=== PATIENT | female | born 2000 | race African-American/Black ===

== ENCOUNTER 2023-09-04 22:47 | Emergency (ER) | payer OTHER, SELFPAY ==
[2023-09-04 22:51] VITALS: BP 140/89; PULSE 86; RESP 18; TEMP 36.3; O2SAT 100; BMI 41.1
--- NOTE | 2023-09-04 23:11 | EKG12_ITS ---
Test Reason : Blood Pressure : / mmHG Vent. Rate : 077 BPM Atrial Rate : 077 BPM P-R Int : 138 ms QRS Dur : 072 ms QT Int : 370 ms P-R-T Axes : 054 081 013 degrees QTc Int : 418 ms Normal sinus rhythm with sinus arrhythmia Normal ECG Confirmed by MEDARDO MUNROE, SHARON ([id number]), primer expeditor and drier DAQUAN HDZ ([id number]) on 09/05/2023 9:40:18 AM Referred By: Confirmed By:SHARON BATRES MD
--- NOTE | 2023-09-04 23:12 | EDS_ITS ---
HPI History of Present Illness Chief Complaint: Poisoning Informant: patient Narrative Narrative: About 2 or 3 hours ago, patient states she was at a dance show/recital with some other people, she saw that 1 person was eating some gummy worms so she asked him if she could have some. He brought her a couple gummy worms, she states she did not see the bag that they were in, just simply brought her a couple to eat which she did and shortly thereafter, 10 or 15 minutes afterwards, she started feeling hot, she felt her heart racing, and that made her feel a little dyspneic but she did not have any other symptoms or pains or near syncope/syncope. She states th is lasted probably less than 20 minutes before it went away and now she feels back to normal and wants to know what happened. She has used no substances that she knows of including marijuana. PFSH PFSH Medical History no medical history no medical history Allergy/AdvReac Type Severity Reaction Status Date / Time No Known Allergies Allergy Verified 09/04/23 22:50 Social History (Updated 09/04/23 @ 23:[address] Jamari Woo MD) Smoking Status: Never smoker substance use type: does not use ROS ROS ED Constitutional Constitutional ED: Denies chills or fever(s) Eyes Eyes: Denies change in vision or diplopia ENT ENT ED: Denies rhinorrhea or sore throat Cardiovascular Cardiovascular: Denies chest pain or palpitations Respiratory/Chest Respiratory/Chest: Denies cough or dyspnea Gastrointestinal Gastrointestinal: Denies abdominal pain, diarrhea, nausea or vomiting Genitourinary Genitourinary ED: Denies dysuria or hematuria Musculoskeletal Musculoskeletal: Denies back pain or neck pain Integumentary Denies abscess or rash Neurologic Neurologic: Denies headache(s), paresthesias or weakness Psychiatric Psychiatric: Denies anxiety or suicidal thoughts EXAM Physical Exam Const Vital Signs: 09/04/23 22:51 09/04/23 22:49 Temperature 97.4 F L Temperature Source Temporal Pulse Rate 86 Respiratory Rate 18 Respiratory Effort Normal Non-Labored Respiratory Pattern Normal Blood Pressure 140/89 H Blood Pressure Mean 106 Pulse Ox 100 Oxygen Delivery Method Room Air Positive well nourished and well developed General Appearance ED: well developed and NAD HEENT Reports moist mucous membranes normocephalic and atraumatic Eyes PERRL and EOMs intact bilaterally Neck full ROM and supple Resp normal respiratory effort and clear to auscultation bilaterally Cardio regular rate and regular rhythm Heart Sounds: murmur systolic III/ harsh GI non-tender and non-distended Auscultation: normoactive bowel sounds Palpation: soft Back/Spine no CVA tenderness General Back: other FROM Extremity normal to inspection General Extremety ED: Negative for edema, pulses abnormal or tenderness General Extremity: Negative for edema or pulses abnormal Neuro oriented x3, CN's II-XII intact bilaterally and no sensory deficits noted Sensorium / Orientation: awake and alert Motor Exam: strength 5/5 throughout Skin no rashes or lesions noted and no wounds MDM MDM MDM Narrative Medical decision making narrative: I did a courtesy urine drug screen for the patient, I reviewed the results that is negative. I also did an EKG given her symptoms and the murmur that I heard, which she was unaware of prior to my discussing this with her. She does not have any abnormal vital signs or symptoms that I would consider dangerous at this time, so I do not think she needs any emergent workup of this murmur. She can simply follow-up with her doctor when she is able as long as she does not have any other issues such as unexplained syncope, angina, etc. At this time she stable for discharge home. The differential here given the negative drug screen still includes synthetic cannabinol aids since oftentimes they are structurally different than tetrahydrocannabinol 8 and do not show up on our drug screen. We do not have the ability to send for specialized drug testing for these substances at this time, but since the patient is asymptomatic she is reassured and advised not to take gummy worms from random people. Lab Data Attestation: I reviewed the patient's lab results. Labs: Laboratory Results - last 24 hr 09/04/23 23:24 Urine Opiates Screen NEGATIVE Urine Methadone Screen NEGATIVE Ur Barbiturates Screen NEGATIVE Ur Phencyclidine Scrn NEGATIVE Ur Amphetamines Screen NEGATIVE MDMA (Ecstasy) Screen NEGATIVE U Benzodiazepines Scrn NEGATIVE Urine Cocaine Screen NEGATIVE U Cannabinoids Screen NEGATIVE Ur Drug Screen Comment Discharge Plan Triage Chief Complaint: Poisoning ED Provider: Jamari Woo Dx/Rx/DC Orders Clinical Impression: Heart murmur, Ingested substance, unknown drug Instructions: Understanding a Heart Murmur, ED Accidental Ingestion ... Primary Care Provider: Care Physician,No Primary Referrals: Doctor,Your [Non-Staff] - (when able) Disposition Disposition: Home, Self Care
[2023-09-04 23:52] LABS: Amphetamine Urine VISTA NEGATIVE (<1000 ng/mL); Barbiturate Urine VISTA NEGATIVE (< 200 ng/mL); Benzodiazepine Urine VISTA NEGATIVE (< 200 ng/mL); Cocaine Urine VISTA NEGATIVE (< 300 ng/mL); Ecstacy Urine VISTA NEGATIVE (< 500 ng/mL); Methadone Urine VISTA NEGATIVE (< 300 ng/mL); PCP Urine VISTA NEGATIVE (< 25 ng/mL); THC Urine VISTA NEGATIVE (< 50 ng/mL); Vista UDS pH Range 5
[2023-09-05 00:11] VITALS: BP 140/89; PULSE 86; RESP 18; TEMP 36.3; O2SAT 100
== END 2023-09-05 00:11 | disposition home or self-care (01) ==
PROVIDERS: Emergency Provider Emergency Medicine; Visit Provider Emergency Medicine
DX: T50.905A Adverse effect of unspecified drugs, medicaments and biological substances, initial encounter (principal); R01.1 Cardiac murmur, unspecified
CPT/HCPCS: 80307; 93005; 99282